=== PATIENT | male | born 1935 | race Caucasian/White ===

== ENCOUNTER → 2016-08-21 | Outpatient (REF) | payer MEDICARE, BC ==
[2016-08-21 16:50] LABS: BASO % 0.6 % (0.0-1.0); EOS # 0.4 K/mm3 (0.0-0.50); EOS % 5.5 % (0.0-3.0); LARGE UNSTAINED CELL # 0.2 K/mm3 (0.0-0.4); LARGE UNSTAINED CELL % 2.4 % (0.0-4.0); LYMPH # 1.7 K/mm3 (1.5-4.5); LYMPH % 21.7 % (24.0-44.0); MEAN CORPUSCULAR HGB CONC 32.8 g/dl (32.0-36.5); MEAN CORPUSCULAR VOLUME 88.4 fl (80.0-96.0); MONO # 0.5 K/mm3 (0.0-0.8); MONO % 7.3 % (0.0-5.0); NEUTROPHILS # 4.5 K/mm3 (1.8-7.7); NEUTROPHILS % 62.5 % (36.0-66.0); PLATELET COUNT, AUTOMATED 215 k/mm3 (150-450); RED CELL DISTRIBUTION WIDTH 14.6 % (11.5-14.5); WHITE BLOOD COUNT 7.2 K/mm3 (4.0-10.0)
[2016-08-21 17:23] LABS: ALBUMIN 3.5 GM/DL (3.2-5.2); ALBUMIN/GLOBULIN RATIO 0.92 (1.00-1.93); BILIRUBIN,TOTAL 0.5 MG/DL (0.2-1.0); CALCIUM LEVEL 8.8 MG/DL (8.8-10.2); CREATININE FOR GFR 1.81 MG/DL (0.70-1.30); GLOMERULAR FILTRATION RATE 38.3 (>35); POTASSIUM SERUM 4.6 MEQ/L (3.5-5.1); TOTAL PROTEIN 7.3 GM/DL (6.4-8.2)
== END ==
LOC: M SFHCCLAY 11:34
PROVIDERS: ATTEND Family Medicine
DX: R23.3 Spontaneous ecchymoses (principal); E11.9 Type 2 diabetes mellitus without complications
CPT/HCPCS: 80053; 85025; G0463

== ENCOUNTER 2017-12-16 18:05 | Inpatient (IN) | payer MEDICARE, BC ==
[~2017-12-16 18:05] MED LIST: ACETAMINOPHEN TAB 650MG DOSE (2X325MG) PO; ONDANSETRON 4MG/2ML VIAL (J2405) IV
[2017-12-16] MEDS ORDERED: MORPHINE 4 MG/ML 1ML VIAL/SYRINGE (J2270) As Ordered (18:08)
[2017-12-16] MEDS: MORPHINE 4 MG/ML 1ML VIAL/SYRINGE (J2270) IV ×2 (18:10→21:25)
[2017-12-16] MEDS ORDERED: SLF 3 ML SYR IV (18:15)
[2017-12-16 18:42] LABS: BASO % 0.2 % (0.0-1.0); EOS # 0.1 10^3/uL (0.0-0.50); EOS % 1.1 % (0.0-3.0); HEMATOCRIT 44.2 % (42.0-52.0); HEMOGLOBIN 14.7 g/dl (13.5-17.5); IMMATURE GRANULOCYTE % 0.1 % (0-3.0); LYMPH # 1.7 10^3/uL (1.5-4.5); LYMPH % 16.1 % (24.0-44.0); MEAN CORPUSCULAR HGB CONC 33.3 g/dl (32.0-36.5); MEAN CORPUSCULAR VOLUME 84.2 fl (80.0-96.0); MONO # 0.9 10^3/uL (0.0-0.8); MONO % 8.4 % (0.0-5.0); NEUTROPHILS # 7.6 10^3/uL (1.8-7.7); NEUTROPHILS % 74.1 % (36.0-66.0); PLATELET COUNT, AUTOMATED 284 10^3/uL (150-450); RED BLOOD COUNT 5.25 10^6/uL (4.30-6.10); RED CELL DISTRIBUTION WIDTH 14.5 % (11.5-14.5); WHITE BLOOD COUNT 10.2 10^3/uL (4.0-10.0)
[2017-12-16 18:57] LABS: INR 1.08; PROTHROMBIN TIME 14.1 SECONDS (12.1-14.4)
[2017-12-16 19:20] LABS: ALBUMIN 3.5 GM/DL (3.2-5.2); ALBUMIN/GLOBULIN RATIO 0.83 (1.00-1.93); ALKALINE PHOSPHATASE 90 U/L (45-117); ALT/SGPT 23 U/L (12-78); ANION GAP 12 MEQ/L (8-16); AST/SGOT 13 U/L (7-37); BILIRUBIN,TOTAL 0.6 MG/DL (0.2-1.0); BLOOD UREA NITROGEN 27 MG/DL (7-18); CALCIUM LEVEL 9.4 MG/DL (8.8-10.2); CARBON DIOXIDE LEVEL 21 MEQ/L (21-32); CHLORIDE LEVEL 108 MEQ/L (98-107); CREATININE FOR GFR 1.86 MG/DL (0.70-1.30); GLUCOSE, FASTING 151 MG/DL (70-100); MAGNESIUM LEVEL 2.3 MG/DL (1.8-2.4); SODIUM LEVEL 141 MEQ/L (136-145); TOTAL PROTEIN 7.7 GM/DL (6.4-8.2)
[2017-12-16] MEDS ORDERED: DEXTROSE 50% 50 ML SYRINGE IV (19:30)
[2017-12-16] MEDS ORDERED: GLUCOSE 4 GM CHEW TABLET PO (19:30)
[2017-12-16] MEDS ORDERED: GLUCAGON FOR INJ 1 MG VIAL (J1610) SC (19:30)
[2017-12-16] MEDS: HYDROMORPHONE HCL 0.5 MG/ 0.5 ML SYRINGE (J1170 PER 1) IV (19:46)
[2017-12-16] MEDS: hydrALAZINE INJ 20 MG/ML VIAL IV (19:50)
[2017-12-16] MEDS: METOPROLOL TART 50 MG TAB PO (20:27)
[2017-12-16] MEDS: CIPROFLOXACIN 200 MG in APPROPRIATE DILUENT 1 EA IV (20:29)
[2017-12-16] MEDS: LACTOBACILLUS ACIDOPHILUS CAP (BACID) PO (20:29)
[2017-12-16] MEDS: NS 1,000 ML IV (20:29)
[2017-12-16] MEDS: OMEPRAZOLE 20 MG CAP PO (20:29)
[2017-12-16] MEDS: SLF 3 ML SYR IV (20:30)
[2017-12-16] MEDS: SENOKOT S TAB PO (20:30)
[2017-12-16] MEDS: HumaLOG INSULIN (NovoLOG) PER UNIT SC (20:34)
[2017-12-16 20:39] LABS: BEDSIDE GLUCOSE 204 MG/DL (83-110)
[2017-12-16] MEDS ORDERED: ENTER DRUG NAME HERE (PATIENT'S OWN MED) OD (21:00)
[2017-12-16 21:45] LABS: CPK CREATINE PHOSPHOKINASE 39 U/L (39-308); TROPONIN I < 0.02 NG/ML (< 0.10)
[2017-12-17] MEDS: hydrALAZINE INJ 20 MG/ML VIAL IV ×5 (00:15→17:45)
[2017-12-17] MEDS: MORPHINE 4 MG/ML 1ML VIAL/SYRINGE (J2270) IV ×2 (01:27→12:50)
[2017-12-17 04:22] LABS: HEMATOCRIT 44.2 % (42.0-52.0); HEMOGLOBIN 14.1 g/dl (13.5-17.5); MEAN CORPUSCULAR HEMOGLOBIN 27.9 pg (27.0-33.0); MEAN CORPUSCULAR HGB CONC 31.9 g/dl (32.0-36.5); MEAN CORPUSCULAR VOLUME 87.4 fl (80.0-96.0); PLATELET COUNT, AUTOMATED 253 10^3/uL (150-450); RED BLOOD COUNT 5.06 10^6/uL (4.30-6.10); RED CELL DISTRIBUTION WIDTH 14.9 % (11.5-14.5); WHITE BLOOD COUNT 13.3 10^3/uL (4.0-10.0)
[2017-12-17 04:46] LABS: ALBUMIN 3.1 GM/DL (3.2-5.2); ANION GAP 9 MEQ/L (8-16); BLOOD UREA NITROGEN 28 MG/DL (7-18); C REACTIVE PROTEIN QUANTITATIV 1.29 MG/DL (0.00-0.30); CALCIUM LEVEL 8.8 MG/DL (8.8-10.2); CARBON DIOXIDE LEVEL 24 MEQ/L (21-32); CHLORIDE LEVEL 110 MEQ/L (98-107); CPK CREATINE PHOSPHOKINASE 28 U/L (39-308); CREATININE FOR GFR 2.04 MG/DL (0.70-1.30); GLOMERULAR FILTRATION RATE 33.3 (>35); GLUCOSE, FASTING 126 MG/DL (70-100); MAGNESIUM LEVEL 2.1 MG/DL (1.8-2.4); MB/CK RELATIVE INDEX 6.07 (< OR =4); PHOSPHORUS LEVEL 4.7 MG/DL (2.5-4.9); POTASSIUM SERUM 4.5 MEQ/L (3.5-5.1); SODIUM LEVEL 143 MEQ/L (136-145); TROPONIN I 0.02 NG/ML (< 0.10)
[2017-12-17] MEDS: SLF 3 ML SYR IV ×3 (05:40→20:09)
[2017-12-17] MEDS: LEVOTHYROXINE 75MCG TABLET (0.075MG) PO (05:40)
[2017-12-17] MEDS: HumaLOG INSULIN (NovoLOG) PER UNIT SC ×4 (07:35→20:08)
[2017-12-17] MEDS: CIPROFLOXACIN 200 MG in APPROPRIATE DILUENT 1 EA IV ×2 (07:50→20:09)
[2017-12-17] MEDS ORDERED: dexameTHASONE 4 MG/ML 1ML VIAL (J1100) As Ordered (08:36)
[2017-12-17] MEDS ORDERED: PROPOFOL 200 MG/20 ML VIAL As Ordered (08:36)
[2017-12-17] MEDS ORDERED: fentaNYL 100 MCG/2 ML INJECTION (J3010) As Ordered (08:36)
[2017-12-17] MEDS ORDERED: LIDOCAINE 2% INJ 100 MG/5 ML SDV (FOR ANES.) As Ordered (08:36)
[2017-12-17] MEDS ORDERED: ONDANSETRON 4MG/2ML VIAL (J2405) As Ordered (08:36)
[2017-12-17] MEDS ORDERED: MIDAZOLAM INJ 2 MG/2 ML VIAL (J2250) As Ordered (08:36)
[2017-12-17] MEDS: CONRAY-60 60% 50ML VIAL (Q9961) As Ordered (09:00)
[2017-12-17] MEDS ORDERED: PHENYLephrine HCL 500 MCG/5 ML (100MCG/ML) SYRINGE (J2370) As Ordered (09:33)
[2017-12-17] MEDS ORDERED: ePHEDrine SULFATE 25 MG/5 ML(5MG/ML) SYRINGE As Ordered (09:33)
[2017-12-17] MEDS ORDERED: fentaNYL 100 MCG/2 ML INJECTION (J3010) IV (10:15)
[2017-12-17] MEDS ORDERED: LR 1,000 ML IV (10:15)
[2017-12-17] MEDS ORDERED: PERCOCET 5MG/325MG TAB PO (10:15)
[2017-12-17] MEDS ORDERED: ONDANSETRON 4MG/2ML VIAL (J2405) IV (10:15)
[2017-12-17] MEDS: VENLAFAXINE **XR** 37.5 MG CAPSULE PO (11:03)
[2017-12-17] MEDS: ATORVASTATIN 20 MG TAB PO (11:03)
[2017-12-17] MEDS: SENOKOT S TAB PO ×2 (11:03→20:07)
[2017-12-17] MEDS: TAMSULOSIN 0.4 MG CAP PO (11:03)
[2017-12-17] MEDS: METOPROLOL TART 50 MG TAB PO ×2 (11:04→20:09)
[2017-12-17] MEDS: LACTOBACILLUS ACIDOPHILUS CAP (BACID) PO ×3 (11:04→20:04)
[2017-12-17] MEDS: HYDROMORPHONE HCL 0.5 MG/ 0.5 ML SYRINGE (J1170 PER 1) IV (11:13)
[2017-12-17] MEDS: NS 1,000 ML IV (12:45)
[2017-12-17 12:56] LABS: BEDSIDE GLUCOSE 228 MG/DL (83-110)
[2017-12-17 17:40] LABS: BEDSIDE GLUCOSE 196 MG/DL (83-110)
[2017-12-17] MEDS: OMEPRAZOLE 20 MG CAP PO (20:04)
[2017-12-17] MEDS: amLODIPine 10 MG TAB PO (20:07)
[2017-12-17] MEDS: cloNIDine 0.1 MG TAB PO ×2 (20:08→23:47)
[2017-12-17 20:18] LABS: BEDSIDE GLUCOSE 207 MG/DL (83-110)
[2017-12-17] MEDS ORDERED: APIXABAN 2.5 MG TAB (ELIQUIS) PO (21:00)
[2017-12-18] MEDS: cloNIDine 0.1 MG TAB PO ×2 (05:52→11:53)
[2017-12-18] MEDS: LEVOTHYROXINE 75MCG TABLET (0.075MG) PO (05:53)
[2017-12-18] MEDS: SLF 3 ML SYR IV ×2 (05:54→12:09)
[2017-12-18 07:20] LABS: HEMATOCRIT 39.4 % (42.0-52.0); HEMOGLOBIN 12.8 g/dl (13.5-17.5); MEAN CORPUSCULAR HEMOGLOBIN 28.1 pg (27.0-33.0); MEAN CORPUSCULAR HGB CONC 32.5 g/dl (32.0-36.5); MEAN CORPUSCULAR VOLUME 86.6 fl (80.0-96.0); PLATELET COUNT, AUTOMATED 239 10^3/uL (150-450); RED BLOOD COUNT 4.55 10^6/uL (4.30-6.10); RED CELL DISTRIBUTION WIDTH 15.1 % (11.5-14.5); WHITE BLOOD COUNT 11.6 10^3/uL (4.0-10.0)
[2017-12-18 07:55] LABS: ALBUMIN 2.6 GM/DL (3.2-5.2); ANION GAP 8 MEQ/L (8-16); BLOOD UREA NITROGEN 33 MG/DL (7-18); CARBON DIOXIDE LEVEL 23 MEQ/L (21-32); CHLORIDE LEVEL 110 MEQ/L (98-107); CREATININE FOR GFR 2.12 MG/DL (0.70-1.30); GLOMERULAR FILTRATION RATE 31.8 (>35); GLUCOSE, FASTING 149 MG/DL (70-100); PHOSPHORUS LEVEL 3.4 MG/DL (2.5-4.9); POTASSIUM SERUM 4.2 MEQ/L (3.5-5.1); SODIUM LEVEL 141 MEQ/L (136-145)
[2017-12-18] MEDS: SENOKOT S TAB PO (09:06)
[2017-12-18] MEDS: TAMSULOSIN 0.4 MG CAP PO (09:06)
[2017-12-18] MEDS: HumaLOG INSULIN (NovoLOG) PER UNIT SC ×2 (09:06→11:52)
[2017-12-18] MEDS: LACTOBACILLUS ACIDOPHILUS CAP (BACID) PO (09:07)
[2017-12-18] MEDS: METOPROLOL TART 50 MG TAB PO (09:07)
[2017-12-18] MEDS: ATORVASTATIN 20 MG TAB PO (09:07)
[2017-12-18] MEDS: TICAGRELOR 90 MG TABLET (BRILINTA) PO (09:43)
[2017-12-18] MEDS: VENLAFAXINE **XR** 37.5 MG CAPSULE PO (09:43)
[2017-12-18] MEDS: CIPROFLOXACIN 200 MG in APPROPRIATE DILUENT 1 EA IV (11:52)
[2017-12-18 20:46] LABS: BEDSIDE GLUCOSE 145 MG/DL (83-110)
[2017-12-18 20:46] LABS: BEDSIDE GLUCOSE 190 MG/DL (83-110)
== END 2017-12-18 13:45 | disposition home or self-care (01) | DRG 669 ==
LOC: M MS5PR 12-17 21:34 → M PCU 18:05
PROC: 0TC68ZZ Extirpation of Matter from Right Ureter, Via Natural or Artificial Opening Endoscopic (ICD-10-PCS; principal; 2017-12-17 08:38)
PROC: 0T768DZ Dilation of Right Ureter with Intraluminal Device, Via Natural or Artificial Opening Endoscopic (ICD-10-PCS; 2017-12-17 08:38)
DX: N13.1 Hydronephrosis with ureteral stricture, not elsewhere classified (principal); I12.9 Hypertensive chronic kidney disease with stage 1 through stage 4 chronic kidney disease, or unspecified chronic kidney disease; N18.3 Chronic kidney disease, stage 3 (moderate); E11.22 Type 2 diabetes mellitus with diabetic chronic kidney disease; N17.9 Acute kidney failure, unspecified; I48.91 Unspecified atrial fibrillation; I16.0 Hypertensive urgency; E03.9 Hypothyroidism, unspecified; I25.10 Atherosclerotic heart disease of native coronary artery without angina pectoris; Z96.653 Presence of artificial knee joint, bilateral; Z95.5 Presence of coronary angioplasty implant and graft; Z87.891 Personal history of nicotine dependence; Z79.01 Long term (current) use of anticoagulants; Z79.84 Long term (current) use of oral hypoglycemic drugs; Z79.891 Long term (current) use of opiate analgesic; Z79.899 Other long term (current) drug therapy; Z86.73 Personal history of transient ischemic attack (TIA), and cerebral infarction without residual deficits; Z88.0 Allergy status to penicillin; Z88.8 Allergy status to other drugs, medicaments and biological substances